=== PATIENT | male | born 1940 | race Caucasian/White ===

== ENCOUNTER 2017-03-31 11:42 | Emergency (ER) | payer OTHER ==
[~2017-03-31] VITALS: Ht 170.2 cm; Wt 90.7 kg
--- NOTE | 2017-03-31 13:31 | ED GI/GU/ABDOMINAL COMPLAINT ---
History of Present Illness General Chief Complaint: General Adult Stated Complaint: HERNIA PAIN Source: patient Exam Limitations: no limitations Allergies Coded Allergies: NO KNOWN ALLERGIES (01/09/17) Triage Note: TRIAGE: 77 Y/O MALE PRESETNS C/O LEFT SIDED HERNIA. REPORTS HAD SURGERY 6 YEARS AGO AND NOW IS EXPERIENCING A "FOOTBALL SIZED HERNIA" AND ASSOCIATED PAIN. Triage Nurses Notes Reviewed? yes HPI: This patient is a 77-year-old male with a past medical history including renal carcinoma previously removed in 2010 who presents to the emergency department today for evaluation of hernia pain. After his surgery in 2010, the patient developed a large left sided hernia at the site of the previous incision site. The patient reported that the hernia has never got stuck out. He denied any overlying skin changes in color. He reported that when he lays on his right side hernia easily reduces. It is always soft. Patient reported some occasional soreness, but no pain until this morning. He reported that he woke up and was having 0.5 out of 10 pain. He reported that it progressed up to 3 out of 10 pain. The pain was nonradiating and constant. It has since resolved. He called his primary care physician who advised that he come to the emergency department today to rule out any incarceration or strangulation of the hernia. The patient denied any nausea, vomiting, fevers, chills, chest pain, or difficulty breathing. He reported that occasionally he feels more discomfort when he is constipated, but it is relieved with bowel movements. (RADHA NORWOOD,MAURICE) Vital Signs & Intake/Output Vital Signs & Intake/Output Vital Signs Date Time Temp Pulse Resp B/P B/P Pulse O2 O2 Flow FiO2 Mean Ox Delivery Rate 03/31 1519 18 122/66 98 Room Air 03/31 1410 98.5 73 18 111/66 99 03/31 1322 Room Air ED Intake and Output 04/01 0000 03/31 1200 Intake Total Output Total Balance Patient 200 lb Weight Weight Reported by Patient Measurement Method Past History Travel History Traveled to [place] past 21 day No Medical History Any Pertinent Medical History? see below for history Cardiovascular: hyperlipidemia Gastrointestinal: INCISIONAL HERNIA (LEFT) Renal: benign prost hyperplasia Tetanus Vaccine: Surgical History Surgical History: LEFT-SIDED RENAL CARCINOMA REMOVAL Psychosocial History What is your primary language Hebrew Tobacco Use: Never used ETOH Use: denies use Illicit Drug Use: denies illicit drug use Family History Hx Contributory? No (RADHA NORWOOD,MAURICE) Review of Systems Review of Systems Constitutional: Reports: no symptoms. EENTM: Reports: no symptoms. Respiratory: Reports: no symptoms. Cardiovascular: Reports: no symptoms. GI: Reports: see HPI. Genitourinary: Reports: no symptoms. Musculoskeletal: Reports: no symptoms. Skin: Reports: no symptoms. Neurological/Psychological: Reports: no symptoms. All Other Systems: Reviewed and Negative (RADHA NORWOOD,MAURICE) Physical Exam Physical Exam Gastrointestinal: soft, non-tender, no organomegaly, NORMOACTIVE BOWEL SOUNDS.NO REBOUND OR GUARDING. nO PERITONEAL SIGNS. lARGE, LEFT-SIDED INCISIONAL HERNIA WHICH IS SOFT WITH NO OVERLYING SKIN DISCOLORATION. eASILY REDUCIBLE. nONTENDER TO PALPATION. Comments: Well-developed well-nourished person in no acute distress HEENT: Normal EENT exam, head normocephalic, moist mucous membranes Pupils equally round and reactive to light. Neck: Supple, no lymphadenopathy Back: Normal gait Cardiovascular: Regular rate and rhythm with no murmurs, rubs, or gallops Respiratory: No respiratory distress. Breath sounds clear to auscultation bilaterally with no wheezes, rales, or rhonchi Extremity: Normal and equal pulses Neuro: Alert oriented x3, cranial nerves II through XII grossly intact. Skin: No appreciable rash on exposed skin, skin is warm and dry. Psych: Mood and affect is normal Core Measures ACS in differential dx? No Severe Sepsis Present: No Septic Shock Present: No (RADHA NORWOOD,MAURICE) Progress Differential Diagnosis: AAA, AMI, appendicitis, biliary colic, bowel obstruction , colon cancer, cholecystitis, diverticulitis, gastritis, hernia, ischemic bowel , inflamm bowel dis, pancreatitis, PUD/GERD, perforated viscous, ureterolithiasis Plan of Care: Orders Procedure Date/time Status CT ABD & PELVIS W/O IV CONTRAS 03/31 1320 Active Diagnostic Imaging: Viewed by Me: CT Scan. Discussed w/RAD: CT Scan. Radiology Impression: PATIENT: JADA ORTEGA PRESENT AGE: 77 PATIENT ACCOUNT NO: [id number] : 40 LOCATION: [facility] ([facility] ORDERING PHYSICIAN: MAURICE GARCIA PA-C SERVICE DATE: 03/31/17 EXAM TYPE: CAT - CT ABD & PELVIS W/O IV CONTRAS EXAMINATION: CT ABDOMEN AND PELVIS WITHOUT CONTRAST CLINICAL INFORMATION: Evaluation for incarcerated hernia, pain COMPARISON: 05/23/2009 CT scan TECHNIQUE: Multidetector volumetric imaging was performed from the superior aspect of the liver through the pubic symphysis. Sagittal and coronal reformatted images were obtained on the technologist's workstation. DLP: 537.59 mGy-cm FINDINGS: LUNG BASES: The visualized lung bases linear atelectasis in medial right middle lobe. The lung bases are otherwise clear. There is a large left lumbar hernia. The hernial sac measures about 13.5 x 9.5 x 12.5 cm in CC, transverse and AP diameters. The hernia contains the splenic flexure of the colon and part of the descending colon, some small bowel loops and mesenteric fat. The left colon abuts the hernial sac. The bowel loops within the hernia are normal in diameter without evidence of abnormal wall thickening. There is no 3 fluid within the hernial sac. No mesenteric fat stranding seen either. GASTROINTESTINAL TRACT: The stomach, duodenum, small bowel loops are within normal limits. The bowel loops are normal in diameter. Diverticular disease of the colon noted without evidence of acute diverticulitis. The appendix is not definitely visualized, however there are no inflammatory changes to suggest acute appendicitis. Some of the small bowel loops and associated mesentery as well as the splenic flecture and part of the descending colon are located within the left lateral/lumbar hernia without evidence of bowel obstruction or strangulation. LIVER, GALLBLADDER, AND BILIARY TREE: The noncontrast images demonstrate the liver is normal in size, shape, and attenuation. No focal hepatic lesion or biliary ductal dilatation is present. The gallbladder is unremarkable with no evidence of radiopaque gallstones, gallbladder wall thickening, or obvious pericholecystic inflammatory changes. PANCREAS: Unremarkable. SPLEEN: Unremarkable. ADRENAL GLANDS: Unremarkable. KIDNEYS AND URETERS: The kidneys are normal in size, shape, and attenuation. No hydronephrosis, hydroureter, or calculi seen. No perinephric stranding. The left kidney is deviated laterally, abutting the left lateral/ lumbar hernia. BLADDER: Unremarkable. LYMPH NODES: Normal. VASCULAR: Atherosclerotic calcifications of abdominal aorta noted without aneurysmal dilatation. PELVIC VISCERA: The prostate is mildly enlarged, otherwise unremarkable. It measures 5.1 cm in transverse diameter.. OSSEOUS STRUCTURES: Multilevel degenerative changes of the visualized spine with irregularity of the vertebral endplates and narrowing of intervertebral disc spaces noted. Degenerative changes of bilateral hip joints also seen. IMPRESSION: 1. A large left lumbar hernia which contains part of the small bowel loops with associated mesentery as well as the splenic flecture and part of descending colon. There is no CT evidence of bowel obstruction or strangulation caused by the hernia. 2. Diverticular disease of the colon without evidence of acute diverticulitis. 3. Mildly enlarged prostate. 4. Atherosclerosis. DICTATED BY: TONIE DAI MD DATE/TIME DICTATED:03/31/171429 SANDING SUPERVISOR:PAPA DATE/TIME TRANSCRIBED:03/31/171429 CONFIDENTIAL, DO NOT COPY WITHOUT APPROPRIATE AUTHORIZATION. <Electronically signed in Other Vendor System> SIGNED BY: TONIE DAI MD 03/31/17 1458 Initial ED EKG: none (MAURICE GARCIA PA-C) Departure Departure Disposition: HOME OR SELF CARE Condition: Stable Clinical Impression Primary Impression: Hernia Referrals: GUERLINE BETHEA,MAHOGANY Camarena (PCP/Family) Additional Instructions: Please follow-up with your primary care physician. Return for any worsening symptoms or concerns. Please use your abdominal binder Departure Forms: Customer Survey General Discharge Information (MAURICE GARCIA PA-C) PA/[employer]OP FARM HELPER Co-Sign Statement Statement: ED Attending supervision documentation- x I saw and evaluated the patient. I have also reviewed all the pertinent lab results and diagnostic results. I agree with the findings and the plan of care as documented in the PA's/CROP FARM HELPER's documentation. I have reviewed the ED Record and agree with the PA's/CROP FARM HELPER's documentation. [] Additions or exceptions (if any) to the PAs/[employer] FARM HELPER's note and plan are summarized below: [] (SHEBA BETHEA,MIKE)
--- NOTE | 2017-03-31 14:58 | CT SCAN REPORT ---
EXAMINATION: CT ABDOMEN AND PELVIS WITHOUT CONTRAST CLINICAL INFORMATION: Evaluation for incarcerated hernia, pain COMPARISON: 05/23/2009 CT scan TECHNIQUE: Multidetector volumetric imaging was performed from the superior aspect of the liver through the pubic symphysis. Sagittal and coronal reformatted images were obtained on the technologist's workstation. DLP: 537.59 mGy-cm FINDINGS: LUNG BASES: The visualized lung bases linear atelectasis in medial right middle lobe. The lung bases are otherwise clear. There is a large left lumbar hernia. The hernial sac measures about 13.5 x 9.5 x 12.5 cm in CC, transverse and AP diameters. The hernia contains the splenic flexure of the colon and part of the descending colon, some small bowel loops and mesenteric fat. The left colon abuts the hernial sac. The bowel loops within the hernia are normal in diameter without evidence of abnormal wall thickening. There is no 3 fluid within the hernial sac. No mesenteric fat stranding seen either. GASTROINTESTINAL TRACT: The stomach, duodenum, small bowel loops are within normal limits. The bowel loops are normal in diameter. Diverticular disease of the colon noted without evidence of acute diverticulitis. The appendix is not definitely visualized, however there are no inflammatory changes to suggest acute appendicitis. Some of the small bowel loops and associated mesentery as well as the splenic flecture and part of the descending colon are located within the left lateral/lumbar hernia without evidence of bowel obstruction or strangulation. LIVER, GALLBLADDER, AND BILIARY TREE: The noncontrast images demonstrate the liver is normal in size, shape, and attenuation. No focal hepatic lesion or biliary ductal dilatation is present. The gallbladder is unremarkable with no evidence of radiopaque gallstones, gallbladder wall thickening, or obvious pericholecystic inflammatory changes. PANCREAS: Unremarkable. SPLEEN: Unremarkable. ADRENAL GLANDS: Unremarkable. KIDNEYS AND URETERS: The kidneys are normal in size, shape, and attenuation. No hydronephrosis, hydroureter, or calculi seen. No perinephric stranding. The left kidney is deviated laterally, abutting the left lateral/ lumbar hernia. BLADDER: Unremarkable. LYMPH NODES: Normal. VASCULAR: Atherosclerotic calcifications of abdominal aorta noted without aneurysmal dilatation. PELVIC VISCERA: The prostate is mildly enlarged, otherwise unremarkable. It measures 5.1 cm in transverse diameter.. OSSEOUS STRUCTURES: Multilevel degenerative changes of the visualized spine with irregularity of the vertebral endplates and narrowing of intervertebral disc spaces noted. Degenerative changes of bilateral hip joints also seen. IMPRESSION: 1. A large left lumbar hernia which contains part of the small bowel loops with associated mesentery as well as the splenic flecture and part of descending colon. There is no CT evidence of bowel obstruction or strangulation caused by the hernia. 2. Diverticular disease of the colon without evidence of acute diverticulitis. 3. Mildly enlarged prostate. 4. Atherosclerosis.
[2017-03-31 15:19] VITALS: BP 122/66
== END 2017-03-31 15:20 ==
LOC: ERH 11:42
DX: K46.9 Unspecified abdominal hernia without obstruction or gangrene (principal)
CPT/HCPCS: 74176